=== PATIENT | female | born 1985 | race Caucasian/White ===

== ENCOUNTER 2018-05-07 06:18 | Emergency (ER) | payer OTHER ==
[~2018-05-07] VITALS: Ht 157.5 cm; Wt 110.2 kg
[2018-05-07 07:40] VITALS: BP 139/76
[2018-05-07] MEDS ORDERED: CLON1PAT2 TD (08:00)
[2018-05-07] MEDS ORDERED: ONDA4TAB7 PO (08:01)
[2018-05-07] MEDS ORDERED: LORA1TAB PO (08:01)
[2018-05-07 08:09] LABS: BILIRUBIN,URINE SMALL (NEG); CLARITY,URINE CLEAR; COLOR,URINE AMBER; NITRITE,URINE NEGATIVE (NEG); PH,URINE 5.5; PROTEIN,URINE NEGATIVE (NEG-TRACE); UROBILINOGEN,URINE 0.2 mg/dL (0.2 mg/dL)
--- NOTE | 2018-05-07 08:12 | PHYS DOC ---
Adult General Chief Complaint Chief Complaint: ANXIETY/PANIC ATTACK HPI HPI Patient is a 32 year old female who presents with opiate withdrawal. Patient has been treated with methadone over the last 3 years. She is treated for chronic pain related to arthritis and fibromyalgia. She states her insurance changed or her physician stopped taking her insurance so she has no access to her medications. She ran out 4 days ago. She primarily is complaining of anxiety symptoms and general body aches and return of pain. She also has had some nausea but no vomiting. No abdominal pain. No fever or chills. Review of Systems Review of Systems Constitutional: Denies fever or chills Eyes: Denies change in visual acuity HENT: Denies nasal congestion Respiratory: Denies cough or shortness of breath Cardiovascular: No additional information not addressed in HPI GI: Denies abdominal pain : Denies dysuria or hematuria Musculoskeletal: Denies back pain Integument: Denies rash or skin lesions Neurologic: + headaches Endocrine: Denies polyuria or polydipsia All other systems were reviewed and found to be within normal limits, except as documented in this note. Allergies Allergies Allergies Coded Allergies Type Severity Reaction Last Updated Verified Sulfa (Sulfonamide Antibiotics) Allergy Intermediate "fever,nausea" 05/07/18 Yes Physical Exam Physical Exam Constitutional: Well developed, well nourished, no acute distress HENT: Normocephalic, atraumatic, bilateral external ears normal, oropharynx moist Eyes: PERRLA, EOMI, conjunctiva normal Cardiovascular:Heart rate regular rhythm, no murmur Lungs & Thorax: Bilateral breath sounds clear to auscultation Skin: Warm, dry, no erythema, no rash Extremities: No tenderness, no edema Neurologic: Alert and oriented X 3, normal motor function Psychologic: Affect normal Current Patient Data Lab Values Laboratory Tests Test 05/07/18 08:00 POC Urine HCG, Qualitative Hcg negative (Negative) EKG EKG [] Radiology/Procedures Radiology/Procedures [] Course & Med Decision Making Course & Med Decision Making Pertinent Labs and Imaging studies reviewed. (See chart for details) Patient was evaluated in the emergency department for opiate withdrawal. I informed the patient that I could not refill her methadone prescription as this would not be appropriate medical treatment in an emergency department. I did offer to treat the patient's symptoms with some clonidine, Zofran, and Ativan. The patient was agreeable. I did review the patient's [facility] record which did reveal steady, monthly prescriptions for methadone prescribed by the same provider. The last prescription was on April 02. Although the patient complains of anxiety and nausea, she has normal vital signs in the emergency department and there is no emesis. Patient is discharged home. She is given a clonidine patch as well as a prescription for Ativan and Zofran. She is recommended to establish care with a new pain management physician in the near future or return to the ER if any of her symptoms become severe. Dragon Disclaimer Dragon Disclaimer This electronic medical record was generated, in whole or in part, using a voice recognition dictation system. Departure Departure Impression: Primary Impression: Anxiety Additional Impression: Opiate withdrawal Disposition: HOME, SELF-CARE Condition: GOOD Patient Instructions: Opiate Dependence Scripts Ondansetron Hcl (ZOFRAN) 4 Mg Tablet 4 MG PO PRN TID PRN for NAUSEA, #20 nausea/vomiting Prov: GUADALUPE WRIGHT DO 05/07/18 Lorazepam (LORAZEPAM) 1 Mg Tablet 1 TAB PO BID for anxiety, #30 TAB Prov: GUADALUPE WRIGHT DO 05/07/18 Clonidine (CLONIDINE TTS-2) 1 Each Patch.tdwk 1 PATCH TD WEEKLY for 7 Days, #2 PATCH Prov: GUADALUPE WRIGHT DO 05/07/18 Problem Qualifiers GUADALUPE WRIGHT DO May 07, 2018 08:12
[2018-05-07 08:21] LABS: SQUAMOUS EPITHELIAL CELL,UR MOD /LPF
[2018-05-07 08:22] LABS: BACTERIA,URINE 0 /HPF (0-FEW); RBC,URINE 0 /HPF (0-2)
== END 2018-05-07 08:25 | disposition home or self-care (01) ==
LOC: ER 06:18
DX: F41.9 Anxiety disorder, unspecified (principal); F11.23 Opioid dependence with withdrawal; Z88.2 Allergy status to sulfonamides
CPT/HCPCS: 81001; 81025; 99284

== ENCOUNTER 2020-10-02 12:51 | Emergency (ER) | payer MEDICAID, OTHER ==
[~2020-10-02] VITALS: Ht 157.5 cm; Wt 123.0 kg
[~2020-10-02 12:51] MED LIST: CLON1PAT6 TD; LORA1TAB PO; ONDA4TAB7 PO
[2020-10-02 13:00] VITALS: BP 146/66
[2020-10-02 13:28] LABS: BILIRUBIN,URINE NEGATIVE (NEG); CLARITY,URINE CLEAR; COLOR,URINE YELLOW; NITRITE,URINE NEGATIVE (NEG); PROTEIN,URINE NEGATIVE (NEG-TRACE); UROBILINOGEN,URINE 0.2 mg/dL (0.2 mg/dL)
[2020-10-02 13:34] LABS: BACTERIA,URINE 0 /HPF (0-FEW); RBC,URINE 0 /HPF (0-2); WBC,URINE 0 /HPF (0-4)
--- NOTE | 2020-10-02 13:42 | PHYS DOC ---
Past Medical History Past Medical History: Anxiety, Arthritis, Fibromyalgia, Migraines, Other Additional Past Medical Histor: scoliosis Past Surgical History: Cholecystectomy, Tonsillectomy, Other Additional Past Surgical Histo: R knee scope,laparoscopy,R carpal tunnel Smoking Status: Never Smoker Alcohol Use: Rarely Drug Use: None General Adult EDM: Chief Complaint: ABDOMINAL PAIN HPI: HPI: 35-year-old female past medical history significant for fibromyalgia, osteoarthritis and chronic pain, on methadone, presents to the ED with complaints of " has been many year, comes and goes, bad the past 2 weeks with constant nausea," c/o ruq sharp, nonradiating abdominal pain. Also reports intermittent loose watery stools for the past 2 months, " my stomach and GERD is messed up." Last bowel movement was today, denies any black or red color in stool. Last meal was around 1 AM, had yogurt. No history of blood transfusions. No recent alcohol binge drinking. Uses marijuana occasionally. States last time she had the symptoms she was told she was 3 days by her physician and sister who is a nurse that she had appendicitis. Past medical history of cholecystitis. Denies any alcohol abuse. Review of Systems: Review of Systems: Constitutional: Denies fever or chills. [] Eyes: Denies change in visual acuity. [] HENT: Denies nasal congestion or sore throat. [] Respiratory: Denies cough or shortness of breath. [] Cardiovascular: Denies chest pain or edema or hemoptysis GI: Denies melena, hematochezia, hematemesis : Denies dysuria or vaginal bleeding Musculoskeletal: Denies midline back pain or joint pain. [] Integument: Denies rash or diaphoresis Neurologic: Denies headache, focal weakness or sensory changes. [] Endocrine: Denies polyuria or polydipsia. [] Lymphatic: Denies swollen glands. [] Psychiatric: Denies depression or anxiety. [] Heart Score: C/O Chest Pain: No Risk Factors: Risk Factors: DM, Current or recent (<one month) smoker, HTN, HLP, family history of CAD, obesity. Risk Scores: Score 0 - 3: 2.5% MACE over next 6 weeks - Discharge Home Score 4 - 6: 20.3% MACE over next 6 weeks - Admit for Clinical Observation Score 7 - 10: 72.7% MACE over next 6 weeks - Early Invasive Strategies Allergies: Allergies: Allergies Coded Allergies Type Severity Reaction Last Updated Verified Sulfa (Sulfonamide Antibiotics) Allergy Intermediate "fever,nausea" 05/07/18 Yes Physical Exam: PE: Constitutional: Well developed, well nourished, no acute distress, non-toxic appearance, obese HENT: Normocephalic, atraumatic, Eyes: EOMI, conjunctiva normal, no discharge. Neck: Normal range of motion, supple, Cardiovascular: S1/2 present, regular rhythm Lungs & Thorax: Speaking in full sentences, bilateral equal chest rise, no tachypnea or increased work of breathing Abdomen: soft, no McBurney's point tenderness, no Rovsing sign, no peritonitis or rigidity , casement patient's pain is her right lower anterior ribs-has no right upper quadrant pain/no Serna sign Skin: Warm, dry, no erythema, no rash. [] Back: No mildline tenderness, no CVA tenderness. [] Extremities: No tenderness, no cyanosis, no unilateral lower extremity edema Neurologic: Alert and oriented X 3, normal motor function, normal sensory function, no focal deficits noted. [] Psychologic: Affect normal, judgement normal, mood normal. [] Current Patient Data: Labs: Laboratory Tests Test 10/02/20 12:53 10/02/20 13:23 Urine Collection Type Unknown Urine Color Yellow Urine Clarity Clear Urine pH 6.0 (<5.0-8.0) Urine Specific [place] >=1.030 (1.000-1.030) Urine Protein Negative mg/dL (NEG-TRACE) Urine Glucose (UA) Negative mg/dL (NEG) Urine Ketones (Stick) Negative mg/dL (NEG) Urine Blood Negative (NEG) Urine Nitrite Negative (NEG) Urine Bilirubin Negative (NEG) Urine Urobilinogen Dipstick 0.2 mg/dL (0.2 mg/dL) Urine Leukocyte Esterase Negative (NEG) Urine RBC 0 /HPF (0-2) Urine WBC 0 /HPF (0-4) Urine Squamous Epithelial Cells Occ /LPF Urine Bacteria 0 /HPF (0-FEW) POC Urine HCG, Qualitative Hcg negative (Negative) EKG: EKG: [] Radiology/Procedures: Radiology/Procedures: IMAGING REPORT Signed PATIENT: ELANA CHAVEZ ACCOUNT: [id number] : 1985 LOCATION: ER AGE: 35 SEX: F EXAM STATUS: REG ER ORD. PHYSICIAN: VIKAS HERCULES DO REASON: ruq pain PROCEDURE: CT ABDOMEN PELVIS WO CONTRAST Study: CT abdomen/pelvis without intravenous contrast Indication: Right upper quadrant pain. Comparison: None. Technique: Helical CT imaging performed of the abdomen and pelvis without the use of intravenous contrast. Sagittal and coronal reformats were obtained. One or more of the following individualized dose reduction techniques were utilized for this examination: 1. Automated exposure control 2. Adjustment of the mA and/or kV according to patient size 3. Use of iterative reconstruction technique. Findings: Inherently limited evaluation without intravenous contrast. Unremarkable visualized lungs and mediastinal contents. Hepatic steatosis. The liver is prominent in size at 22 cm craniocaudal. Surgically absent gallbladder. Nondilated biliary tree. Unremarkable pancreas and adrenal glands. The spleen is within normal limits for size. There may be a tiny nonobstructing intrarenal stone at the lower pole the left kidney, image 44 series 4. No hydronephrosis. Unremarkable urinary bladder. Within normal limits reproductive organs. Mild volume colonic stool burden. The appendix is normal. Nonobstructed small bowel. Limited assessment of the stomach due to underdistention. Nonaneurysmal aorta. No adenopathy. No free fluid or pneumoperitoneum. No acute or aggressive osseous process. Mild bilateral hip arthrosis. Mild lower lumbar facet degeneration. Impression: 1. No acute abnormality seen throughout the abdomen or pelvis. Surgically absent gallbladder. 2. Hepatic steatosis and hepatomegaly. 3. Mild constipation. Electronically signed by: TREY QUIJANO MD (10/02/2020 3:10 PM) [id number] DICTATED and SIGNED BY: TREY QUIJANO MD DATE: 10/02/20 [id number] 0 Course & Med Decision Making: Course & Med Decision Making Pertinent Labs and Imaging studies reviewed. (See chart for details) On reevaluation patient sleeping, no distress. Has no active nausea, vomiting or diarrhea. Denies any history of daily alcohol abuse or hepatitis/no IV drug use. CT shows normal-appearing appendix and mild constipation. Pain is well controlled in ED. recommend fiber, Bentyl and Zofran as needed for nausea. Will discharge home with strict ED return precautions were given for severe pain, significant fluid loss, chest pain, syncope or neurologic deficits. Encouraged urgent outpatient follow-up with PMD and GI for definitive management of abdominal pain, will likely benefit from endoscopy. Life-threatening processes were considered but are low suspicion at this time, given history, physical exam and ED workup. Pt was educated on all prescription medications and adverse effects. All patient's questions were answered and pt was stable at time of discharge. Life/limb-threatening differential includes but is not limited to, acute coronary syndrome/myocardial infarction, Boerhaave's, DKA, gastrointestinal bleeding, intracranial hemorrhage, ischemic bowel, meningitis, sepsis, surgical abdomen (AAA), toxidrome (drug over/overdose/carbon monoxide, etc), ovarian/testicular torsion, trauma, or infection/sepsis. I spoken with the patient and her caregivers. I explained the patient's condition, diagnoses and treatment plan based on the information available to me at this time. I have answered the patient and her caregiver's questions and addressed any concerns. The patient and her caregivers have a good understanding of patient's diagnosis, condition and treatment plan as can be expected at this point. Vital signs have been stable. Patient's condition is stable and appropriate for discharge from the emergency department. Patient will pursue further outpatient evaluation with primary care physician or other designated or consulting physician as outlined in the discharge instructions. The patient and/or caregivers are agreeable to this plan of care and follow-up instructions have been explained in detail. The patient and/or caregivers have received these instructions in written form and have expressed an understanding of the discharge instructions. The patient and/or caregivers are aware that any significant change of condition or worsening of symptoms should prompt immediate return to this or the closest emergency department or call to 911. Osvaldo Disclaimer: Osvaldo Disclaimer: This electronic medical record was generated, in whole or in part, using a voice recognition dictation system. Departure Departure Impression: Primary Impression: Abdominal pain Additional Impressions: Constipation Hepatic steatosis Nausea Disposition: 01 HOME / SELF CARE / HOMELESS Condition: STABLE Referrals: MARGARET WOODS MD (PCP) follow up with your primary care physician in the next 3 to 5 days for reevaluation or FOLLOW UP WITH FAMILY MEDICINE: [address] [place] [address] Patient Instructions: Constipation, Adult, Irritable Bowel Syndrome, Nausea, Adult Additional Instructions: FOLLOW UP WITH GASTROENTEROLOGY: For definitive management of irregular bowel mo vements/gastritis [facility] [address] [place] [address] EMERGENCY DEPARTMENT GENERAL DISCHARGE INSTRUCTIONS Thank you for coming to [facility] Emergency Department (ED) today and trusting us with you care. We trust that you had a positive experience in our Emergency Department. If you wish to speak to the department management, you may call the Director at [phone]. YOUR FOLLOW UP INSTRUCTIONS ARE FOLLOWS: 1. Do you have a private Doctor? If you do not have a private doctor, please ask for a resource list of physicians or clinics that may be able to assist you with follow up care. 2. The Emergency Physicain has interpreted your x-rays. The X-Ray specialist will also review them. If there is a change in the findings, you will be notified in 48 hours when at all possible. 3. A lab test or culture has been done, your results will be reviewed and you will be notified if you need a change in treatment. ADDITIONAL INSTRUCTIONS AND INFORMATION: 1. Your care today has been supervised by a physician who is specially trained in emergency care. Many problems require more than one evaluation for a complete diagnosis and treatment. We recommend that you schedule your follow up appointment as recommended to ensure complete treatment of you illness or injury. If you are unable to obtain follow up care and continue to have a problem, or if your condition worsens, we recommend that you return to the ED. 2. We are not able to safely determine your condition over the phone nor are we able to give sound medical advice over the phone. For these safety reasons, if you call for medical advice we will ask you to come to the ED for further evaluation. 3. If you have any questions regarding these discharge instructions please call the ED at [phone]. SAFETY INFORMATION: In the interest of safety, wellness, and injury prevention; we encourage you to wear your sealbelt, if you smoke; quite smoking, and we encourage family to use a protective helmet for bicycling and other sporting events that present an increased risk for head injury. IF YOUR SYMPTOMS WORSEN OR NEW SYMPTOMS DEVELOP, OR YOU HAVE CONCERNS ABOUT YOUR CONDITION; OR IF YOUR CONDITION WORSENS WHILE YOU ARE WAITING FOR YOUR FOLLOW UP APPOINTMENT; EITHER CONTACT YOUR PRIMARY CARE DOCTOR, THE PHYSICIAN WHOSE NAME AND NUMBER YOU WERE GIVEN, OR RETURN TO THE ED IMMEDIATELY. Scripts Inulin (Fiber Gummies) 2 Gm Tab.chew 1 TAB PO DAILY for 30 Days, #30 TAB 0 Refills Prov: VIKAS HERCULES DO 10/02/20 Dicyclomine Hcl (DICYCLOMINE HCL) 20 Mg Tablet 1 TAB PO QID PRN for irregular bowel movements, #30 TAB Prov: VIKAS HERCULES DO 10/02/20 Ondansetron (ONDANSETRON ODT) 4 Mg Tab.rapdis 1 TAB PO PRN Q6-8HRS, #20 TAB Prov: VIKAS HERCULES DO 10/02/20 VIKAS HERCULES DO October 02, 2020 13:42
[2020-10-02 13:45] LABS: BASO # 0.1 x10^3/uL (0.0-0.2); BASO % 1 % (0-3); EOS # 0.1 x10^3/uL (0.0-0.7); EOS % 1 % (0-3); HEMATOCRIT 36.6 % (36.0-47.0); HEMOGLOBIN 12.3 g/dL (12.0-15.5); LYMPH # 3.4 x10^3/uL (1.0-4.8); LYMPH % 54 % (24-48); MEAN CORPUSCULAR HEMOGLOBIN 31 pg (25-35); MEAN CORPUSCULAR HGB CONC 34 g/dL (31-37); MEAN CORPUSCULAR VOLUME 92 fL (79-100); MONO # 0.6 x10^3/uL (0.0-1.1); MONO % 9 % (0-9); NEUT # 2.2 x10^3/uL (1.8-7.7); NEUT % 35 % (31-73); PLATELET COUNT 223 x10^3/uL (140-400); RED BLOOD COUNT 3.99 x10^6/uL (3.50-5.40); RED CELL DISTRIBUTION WIDTH 14.2 % (11.5-14.5); WHITE BLOOD COUNT 6.3 x10^3/uL (4.0-11.0)
[2020-10-02] MEDS ORDERED: FAMOTIDINE 20 MG/2 ML VIAL IVP ONE (13:45)
[2020-10-02] MEDS ORDERED: IV NORMAL SALINE 1000ML BAG 1,000 ML IV SCH (13:45)
[2020-10-02] MEDS ORDERED: METOCLOPRAMIDE HCL 10 MG/2 ML VIAL. IVP ONE (13:45)
[2020-10-02 13:54] LABS: CALCIUM 8.8 mg/dL (8.5-10.1); GFR 62.4; POTASSIUM 4.5 mmol/L (3.5-5.1)
[2020-10-02 14:01] LABS: ALBUMIN 3.2 g/dL (3.4-5.0); DIRECT BILIRUBIN 0.1 mg/dL (0.0-0.2); TOTAL BILIRUBIN 0.1 mg/dL (0.2-1.0); TOTAL PROTEIN 6.7 g/dL (6.4-8.2)
--- NOTE | 2020-10-02 15:12 | RAD ---
Study: CT abdomen/pelvis without intravenous contrast Indication: Right upper quadrant pain. Comparison: None. Technique: Helical CT imaging performed of the abdomen and pelvis without the use of intravenous cont rast. Sagittal and coronal reformats were obtained. One or more of the following individualized dose reduction techniques were utilized for this examinat ion: 1. Automated exposure control 2. Adjustment of the mA and/or kV according to patient size 3. Use of iterative reconstruction technique. Findings: Inherently limited evaluation without intravenous contrast. Unremarkable visualized lungs and mediastinal contents. Hepatic steatosis. The liver is prominent in size at 22 cm craniocaudal. Surgically absent gallbladde r. Nondilated biliary tree. Unremarkable pancreas and adrenal glands. The spleen is within normal arita its for size. There may be a tiny nonobstructing intrarenal stone at the lower pole the left kidney, image 44 serie s 4. No hydronephrosis. Unremarkable urinary bladder. Within normal limits reproductive organs. Mild volume colonic stool burden. The appendix is normal. Nonobstructed small bowel. Limited assessme nt of the stomach due to underdistention. Nonaneurysmal aorta. No adenopathy. No free fluid or pneumoperitoneum. No acute or aggressive osseous process. Mild bilateral hip arthrosis. Mild lower lumbar facet degener ation. Impression: 1. No acute abnormality seen throughout the abdomen or pelvis. Surgically absent gallbladder. 2. Hepatic steatosis and hepatomegaly. 3. Mild constipation. Electronically signed by: TREY QUIJANO MD (10/02/2020 3:10 PM) [id number]
[2020-10-02] MEDS ORDERED: KETOROLAC 15 MG/ML VIAL. IVP ONE (15:45)
[2020-10-02] MEDS ORDERED: DICY20TA3 PO (16:14)
[2020-10-02] MEDS ORDERED: INUL2TAB4 PO (16:14)
[2020-10-02] MEDS ORDERED: ONDA4TAB12 PO (16:14)
[2020-10-03 08:20] LABS: AMPHETAMINE/METHAMPHETAMINE NEG (NEG); BARBITURATES NEG (NEG); BENZODIAZEPINES NEG (NEG); CANNABINOIDS POS (NEG); COCAINE NEG (NEG); METHADONE POS (NEG); OPIATES POS (NEG); PHENCYCLIDINE NEG (NEG)
== END 2020-10-02 17:31 | disposition home or self-care (01) ==
LOC: ER 12:51
DX: K59.00 Constipation, unspecified (principal); K76.0 Fatty (change of) liver, not elsewhere classified; R11.0 Nausea; G43.909 Migraine, unspecified, not intractable, without status migrainosus; G89.29 Other chronic pain; Z90.49 Acquired absence of other specified parts of digestive tract; K21.9 Gastro-esophageal reflux disease without esophagitis; Z88.2 Allergy status to sulfonamides
CPT/HCPCS: 36415; 74176; 80048; 80076; 80307; 81001; 81025; 82550; 83615; 83690; 84484; 85025; 96361; 96374; 96375; 99285; J1885; J2765; J3490; J7030